=== PATIENT | female | born 1945 | race Caucasian/White ===

== ENCOUNTER 2020-07-07 00:45 | Inpatient (IN) | payer MEDICARE, OTHER ==
[~2020-07-07] VITALS: Ht 165.1 cm; Wt 70.1 kg
--- NOTE | 2020-07-07 00:47 | NUR ---
Patient arrived via on er[facility]
--- NOTE | 2020-07-07 01:00 | NUR ---
Patient on 4.5 liters nasal cannula saturating 99%, SOB noted
[2020-07-07] MEDS ORDERED: ATOR10TA PO (01:07)
[2020-07-07] MEDS ORDERED: METF-440 PO (01:07)
[2020-07-07] MEDS ORDERED: BENZ-38 PO (01:07)
[2020-07-07] MEDS ORDERED: DIGO125T PO (01:07)
[2020-07-07] MEDS ORDERED: METO-356 PO (01:07)
[2020-07-07] MEDS ORDERED: WARF2TAB57 PO (01:07)
[2020-07-07] MEDS ORDERED: FURO-152 PO (01:07)
[2020-07-07] MEDS ORDERED: GLIP5TAB13 PO (01:07)
[2020-07-07 01:33] LABS: ABG BASE EXCESS -2.1 mmol/L; ABG HCO3 23.7 mmol/L; ABG PCO2 44.5 mmHg (35.0-45.0); ABG PH 7.345 (7.350-7.450); ABG PO2 95.9 mmHg (75.0-100.0); ABG SITE RIGHT RADIAL; ABG TOTAL HEMOGLOBIN 13.5 G/dL (12.0-16.0); MetHb 0.3 % (0.0-1.5); O2Hb 95.9 % (94.0-97.0); VENT MODE Nasal Cannula
[2020-07-07] MEDS ORDERED: AZITHROMYCIN IV 500 MG in IV DEXTROSE 5% 250 ML IV ONE (01:45)
[2020-07-07] MEDS ORDERED: CEFTRIAXONE 1 G in IV DEXTROSE 5% 50 ML IV ONE (01:45)
[2020-07-07] MEDS ORDERED: CEFTRIAXONE /D5W 50ML IVPB **ER PYXIS IV ONE (02:23)
[2020-07-07] MEDS ORDERED: AZITHROMYCIN 500MG/ D5W 250ML IVPB **ER PYXIS ONLY IV ONE (02:23)
[2020-07-07 02:30] LABS: BASOPHILS % (AUTO) 0.2 % (0.0-2.0); EOSINOPHILS # (AUTO) 0.2 K/uL (0.0-0.7); EOSINOPHILS % (AUTO) 1.1 % (0.0-7.0); HEMATOCRIT 41.1 % (31.2-41.9); HEMOGLOBIN 13.1 g/dL (10.9-14.3); LYMPHOCYTES # (AUTO) 8.2 K/uL (20.0-40.0); LYMPHOCYTES % (AUTO) 47.6 % (20.5-51.5); MEAN CORPUSCULAR HEMOGLOBIN 28.5 uug (24.7-32.8); MEAN CORPUSCULAR HGB CONC 32 g/dL (32.3-35.6); MONOCYTES # (AUTO) 0.7 K/uL (2.0-10.0); MONOCYTES % (AUTO) 4.3 % (0.0-11.0); NEUTROPHILS # (AUTO) 8.1 K/uL (1.8-8.9); NEUTROPHILS % (AUTO) 46.8 % (38.5-71.5); PLATELET COUNT (AUTO) 122 K/uL (179-408); RED BLOOD CELL COUNT(AUTO) 4.62 MIL/uL (3.63-4.92); WHITE BLOOD COUNT (AUTO) 17.3 K/uL (3.8-11.8)
[2020-07-07 02:42] LABS: *BILIRUBIN,URIN NEGATIVE (NEGATIVE); *COLOR,URINE YELLOW (YELLOW); *KETONES,URINE NEGATIVE (NEGATIVE); *UROBILINOGEN,URINE 0.2 E.U./dl (NORMAL); LEUKOCYTE ESTERASE ,URINE TRACE (NEGATIVE); NITRITE, URINE NEGATIVE (NEGATIVE); UGLUCOSE NEGATIVE (NEGATIVE)
[2020-07-07 02:43] LABS: *BLOOD, URINE TRACE INTACT (NEGATIVE)
[2020-07-07 02:44] LABS: CREATININE 0.9 mg/dL (0.6-1.3); POTASSIUM 4.1 mmol/L (3.5-5.1)
[2020-07-07 03:01] LABS: BILIRUBIN,TOTAL 0.5 mg/dL (0.2-1.0); TOTAL PROTEIN, SERUM 6.9 g/dL (6.4-8.2)
[2020-07-07] MEDS ORDERED: FUROSEMIDE 40 MG/4 ML VIAL IV ONE (04:15)
[2020-07-07] MEDS ORDERED: FUROSEMIDE 40 MG/4 ML VIAL ONE (04:20)
[2020-07-07] MEDS ORDERED: ASPIRIN 81 MG TAB.CHEW PO ONE (05:00)
--- NOTE | 2020-07-07 05:00 | NUR ---
Carlo Hong paged at this time for panel call
[2020-07-07] MEDS ORDERED: ASPIRIN 81 MG TAB.CHEW ONE (05:11)
--- NOTE | 2020-07-07 05:32 | NUR ---
Report given to Savanah BACON [facility] Tele unit
[2020-07-07] MEDS ORDERED: TEMAZEPAM 15 MG CAPSULE PO PRN (05:45)
[2020-07-07] MEDS ORDERED: ONDANSETRON 4 MG/2 ML VIAL IV PRN (05:45)
[2020-07-07] MEDS ORDERED: MORPHINE SULFATE 2 MG/1 ML DISP.SYRIN IV PRN (05:45)
[2020-07-07] MEDS ORDERED: HYDROCODONE/APAP 5-325MG TABLET PO PRN (05:45)
[2020-07-07] MEDS ORDERED: ACETAMINOPHEN 325 MG TABLET PO PRN (05:45)
[2020-07-07] MEDS ORDERED: Z GUARD REMEDY PASTE 57 GM TUBE TOP PRN (05:45)
[2020-07-07] MEDS ORDERED: MAGNESIUM HYDROXIDE 30 ML LIQUID UDC PO PRN (05:45)
--- NOTE | 2020-07-07 05:55 | NUR ---
Pt. admitted to Tele/covid unit, under care of FIBERGLASS CONTAINER WINDING OPERATOR Carlo Hong Belongs List completed and all belongings sent with patient, transferred via wheelchair and oxygen therapy
[2020-07-07] MEDS ORDERED: DEXTROSE 50% 50 ML DISP.SYRIN IV PRN (06:15)
[2020-07-07 06:30] VITALS: BP 149/57
--- NOTE | 2020-07-07 06:30 | NUR ---
Received report from ER pt on the floor @0605 via wheelchair. Pt. admitted to Tele/covid unit PUI, under care of TIN ROOFER Carlo Hong. axox3-4, language barrier, speaks Ukrainian.VSS, no acute distress noted. No SOB noted on 4.5L saturating@98%. Pt BRP, voided x1. Skin intact. IV 22G LAC intact and patent. Oriented pt to the room. Tele monitor indicates controlled a-fib. Belongs List completed and placed in chart. Safety measures maintained. Call light and all personal belongings within pt reach. morning medication administered, accucheck 172. Will continue plan of care and endorse oncoming nurse accordingly.
[2020-07-07] MEDS: PANTOPRAZOLE SODIUM 40 MG TABLET.DR PO SCH (06:31)
[2020-07-07] MEDS: BLOOD SUGAR DIAGNOSTIC 1 EACH STRIP VI SCH ×4 (06:40→21:20)
[2020-07-07 07:50] LABS: *CLARITY,URINE HAZY (CLEAR)
[2020-07-07 07:51] LABS: BACTERIA,URINE NONE SEEN /HPF (NONE SEEN); CALCIUM OXALATE CRYSTALS,UR MODERATE /HPF (NONE SEEN); RBC,URINE 0-3 /HPF (0-3); SQUAMOUS EPITHELIAL CELL,UR FEW /HPF (NONE SEEN)
--- NOTE | 2020-07-07 08:00 | NUR ---
Pt non labored breathing. Pt is in no acute distress. Call light is within reach. Skin dry and intact. Pt able to make her needs known. Tele Afib on monitor controlled V pacing. Pacemaker Left CW.
[2020-07-07] MEDS: INSULIN REGULAR, HUMAN 300 UNIT/3 ML VIAL SQ PRN (08:43)
[2020-07-07] MEDS: FUROSEMIDE 40 MG/4 ML VIAL IV SCH (08:44)
[2020-07-07] MEDS: METOPROLOL SUCCINATE XL 25 MG TAB.SR.24H PO SCH (08:49)
[2020-07-07 11:45] VITALS: BP 109/65
[2020-07-07 11:48] LABS: BASOPHILS # (AUTO) 0.1 K/uL (0.0-8.0); BASOPHILS % (AUTO) 0.3 % (0.0-2.0); EOSINOPHILS # (AUTO) 0.1 K/uL (0.0-0.7); EOSINOPHILS % (AUTO) 0.3 % (0.0-7.0); HEMOGLOBIN 13.6 g/dL (10.9-14.3); LYMPHOCYTES # (AUTO) 8.1 K/uL (20.0-40.0); LYMPHOCYTES % (AUTO) 44.8 % (20.5-51.5); MEAN CORPUSCULAR HEMOGLOBIN 28.5 uug (24.7-32.8); MEAN CORPUSCULAR HGB CONC 32 g/dL (32.3-35.6); MEAN CORPUSCULAR VOLUME 90.1 fL (75.5-95.3); MONOCYTES # (AUTO) 0.6 K/uL (2.0-10.0); MONOCYTES % (AUTO) 3.3 % (0.0-11.0); NEUTROPHILS # (AUTO) 9.3 K/uL (1.8-8.9); NEUTROPHILS % (AUTO) 51.3 % (38.5-71.5); PLATELET COUNT (AUTO) 137 K/uL (179-408); RED BLOOD CELL COUNT(AUTO) 4.77 MIL/uL (3.63-4.92); WHITE BLOOD COUNT (AUTO) 18.1 K/uL (3.8-11.8)
[2020-07-07 11:54] LABS: BILIRUBIN,TOTAL 0.5 mg/dL (0.2-1.0); CREATININE 0.9 mg/dL (0.6-1.3); POTASSIUM 4.6 mmol/L (3.5-5.1); TOTAL PROTEIN, SERUM 7.6 g/dL (6.4-8.2)
[2020-07-07] MEDS: DIGOXIN 125 MCG TABLET PO SCH (11:57)
[2020-07-07 16:11] VITALS: BP 123/61
[2020-07-07] MEDS ORDERED: WARFARIN SODIUM 2 MG TABLET PO SCH (17:00)
--- NOTE | 2020-07-07 18:30 | NUR ---
Pt's o2 tapered to 2 liters via n/c with sat of 95%. Pt is in no acute distress. Call light is within reach.
[2020-07-07 20:31] VITALS: BP 120/77
[2020-07-07] MEDS ORDERED: ATORVASTATIN 10 MG TABLET PO SCH (21:00)
[2020-07-08 00:37] VITALS: BP 122/64
[2020-07-08] MEDS ORDERED: CEFTRIAXONE 1 G in IV DEXTROSE 5% 50 ML IV SCH (02:00)
[2020-07-08 04:00] VITALS: BP 125/63
[2020-07-08] MEDS: PANTOPRAZOLE SODIUM 40 MG TABLET.DR PO SCH (05:40)
[2020-07-08 06:11] LABS: BASOPHILS # (AUTO) 0.1 K/uL (0.0-8.0); BASOPHILS % (AUTO) 0.4 % (0.0-2.0); EOSINOPHILS # (AUTO) 0.3 K/uL (0.0-0.7); EOSINOPHILS % (AUTO) 2.2 % (0.0-7.0); HEMATOCRIT 40.3 % (31.2-41.9); HEMOGLOBIN 13.1 g/dL (10.9-14.3); LYMPHOCYTES # (AUTO) 6.5 K/uL (20.0-40.0); LYMPHOCYTES % (AUTO) 52.8 % (20.5-51.5); MEAN CORPUSCULAR HEMOGLOBIN 28.8 uug (24.7-32.8); MEAN CORPUSCULAR HGB CONC 32 g/dL (32.3-35.6); MEAN CORPUSCULAR VOLUME 88.8 fL (75.5-95.3); MONOCYTES # (AUTO) 0.7 K/uL (2.0-10.0); MONOCYTES % (AUTO) 5.8 % (0.0-11.0); NEUTROPHILS # (AUTO) 4.8 K/uL (1.8-8.9); NEUTROPHILS % (AUTO) 38.8 % (38.5-71.5); PLATELET COUNT (AUTO) 116 K/uL (179-408); RED BLOOD CELL COUNT(AUTO) 4.54 MIL/uL (3.63-4.92); WHITE BLOOD COUNT (AUTO) 12.3 K/uL (3.8-11.8)
[2020-07-08 06:39] LABS: CREATININE 0.9 mg/dL (0.6-1.3); MAGNESIUM 2.2 mg/dL (1.8-2.4); PHOSPHOROUS 4.3 mg/dL (2.5-4.9); POTASSIUM 3.7 mmol/L (3.5-5.1)
[2020-07-08 06:51] LABS: THYROID STIMULATING HORMONE 2.109 mIU/mL (0.358-3.740)
[2020-07-08] MEDS: BLOOD SUGAR DIAGNOSTIC 1 EACH STRIP VI SCH ×2 (07:30→12:11)
--- NOTE | 2020-07-08 08:00 | NUR ---
Pt on R/A with saturation of 98%. NO sob noted. Pt states she wants to go home. Explained to patient that PMD and CARDIOLOGY needs to clear her for d/c. PT verbalized understanding.
[2020-07-08] MEDS ORDERED: FUROSEMIDE 40 MG TABLET PO SCH (09:00)
[2020-07-08] MEDS: FUROSEMIDE 40 MG/4 ML VIAL IV SCH (09:37)
[2020-07-08] MEDS: METOPROLOL SUCCINATE XL 25 MG TAB.SR.24H PO SCH (09:40)
[2020-07-08] MEDS: INSULIN REGULAR, HUMAN 300 UNIT/3 ML VIAL SQ PRN ×2 (09:47→12:38)
[2020-07-08 11:17] VITALS: BP 127/65
[2020-07-08] MEDS: DIGOXIN 125 MCG TABLET PO SCH (12:04)
[2020-07-08] MEDS ORDERED: LEVO500T90 PO (12:57)
--- NOTE | 2020-07-08 16:00 | NUR ---
Discharge instructions given to patient and FAMILY members. Educated both proper monitoring for chf IE daily weight of pt and if weight gain of more than 3 lbs to notify PMD due to his CHF. Prescription given to patient for Levaquin to be started in am. (TAO last GIVEN @ 0200 today. Instructed pt to f/u with enrollment management manager and PMD as soon as possible. Instructed to go to ER for any SOB and emergency situations. Pt and family verbalized understanding discharge instructions. IV taken out. o2 sat 98% on r/a. NO sob upon discharge.
[2020-07-08 16:16] VITALS: BP 122/69
[2020-07-08] MEDS ORDERED: BISACODYL 10 MG SUPP.RECT RC PRN (16:45)
== END 2020-07-08 16:00 | disposition home or self-care (01) | DRG 689 ==
LOC: ER 00:45 → TELE3 05:42
PROVIDERS: ADMIT Nurse Practitioner Acute Care; ATTEND Nurse Practitioner Acute Care
DX: N39.0 Urinary tract infection, site not specified (principal); I50.33 Acute on chronic diastolic (congestive) heart failure; I48.20 Chronic atrial fibrillation, unspecified; E87.2 Acidosis; D68.69 Other thrombophilia; I11.0 Hypertensive heart disease with heart failure; E78.5 Hyperlipidemia, unspecified; E11.9 Type 2 diabetes mellitus without complications; Z79.84 Long term (current) use of oral hypoglycemic drugs; D72.829 Elevated white blood cell count, unspecified; Z79.01 Long term (current) use of anticoagulants; Z95.0 Presence of cardiac pacemaker; Z20.822 Contact with and (suspected) exposure to COVID-19; B96.89 Other specified bacterial agents as the cause of diseases classified elsewhere
CPT/HCPCS: 36415; 36600; 70030-TC; 71045; 83605; 83615; 83735; 84100; 84443; 85025; 85610; 85730; 86140; 87040; 87086; 87400; 93005; A4663; G0378; J0456; J0696; J1815; J1940; J7030; J7060; U0003

== ENCOUNTER 2021-04-07 10:02 | Inpatient (IN) | payer OTHER ==
[~2021-04-07] VITALS: Ht 160 cm; Wt 59.0 kg
[2021-04-07] VITALS (12 sets, daily range): BP systolic 116–146; BP diastolic 53–71
[~2021-04-07 10:02] MED LIST: ATOR10TA PO; BENZ-38 PO; DIGO125T PO; FURO-152 PO; GLIP5TAB13 PO; LEVO500T90 PO; METF-440 PO; METO-356 PO; WARF2TAB57 PO
[2021-04-07] MEDS ORDERED: ALBUTEROL SULFATE 2.5 MG/3 ML NEBU NEB ONE (10:15)
[2021-04-07] MEDS ORDERED: methylPREDNISolone SOD SUCC 125 MG/2 ML VIAL IV ONE (10:15)
[2021-04-07] MEDS ORDERED: CEFEPIME HCL 1 G in IV DEXTROSE 5% 50 ML IV ONE (10:15)
[2021-04-07] MEDS ORDERED: IPRATROPIUM BROMIDE 0.5 MG/2.5 ML NEBU NEB ONE (10:15)
[2021-04-07] MEDS ORDERED: VANCOMYCIN IV 1,000 MG in IV DEXTROSE 5% 250 ML IV ONE (10:15)
[2021-04-07] MEDS ORDERED: ALBUTEROL SULFATE 2.5 MG/3 ML NEBU ONE ×2 (10:19→10:40)
[2021-04-07] MEDS ORDERED: IPRATROPIUM BROMIDE 0.5 MG/2.5 ML NEBU ONE (10:19)
[2021-04-07] MEDS ORDERED: methylPREDNISolone SOD SUCC 125 MG/2 ML VIAL ONE (10:22)
[2021-04-07] MEDS ORDERED: VANCOMYCIN IV 200 ML ONE (10:28)
[2021-04-07 10:35] LABS: HEMATOCRIT 42.3 % (31.2-41.9); MEAN CORPUSCULAR HEMOGLOBIN 28.2 uug (24.7-32.8); MEAN CORPUSCULAR VOLUME 87.5 fL (75.5-95.3); PLATELET COUNT (AUTO) 247 K/uL (179-408)
[2021-04-07 10:37] LABS: CREATININE 0.9 mg/dL (0.6-1.3); POTASSIUM 4.4 mmol/L (3.5-5.1)
[2021-04-07] MEDS ORDERED: CHOL200078 PO (10:44)
[2021-04-07] MEDS ORDERED: DILT-3 PO (10:44)
[2021-04-07] MEDS ORDERED: TIOT18CA3 IH (10:44)
[2021-04-07] MEDS ORDERED: CYAN-51 PO (10:44)
[2021-04-07] MEDS ORDERED: FUROSEMIDE 40 MG/4 ML VIAL IV ONE (10:45)
[2021-04-07] MEDS ORDERED: ALBUTEROL SULFATE 2.5 MG/ 0.5 ML NEBU NEB ONE (10:45)
[2021-04-07 10:50] LABS: BILIRUBIN,DIRECT 0.2 mg/dL (0.0-0.2); BILIRUBIN,TOTAL 0.7 mg/dL (0.2-1.0); TOTAL PROTEIN, SERUM 8.2 g/dL (6.4-8.2)
[2021-04-07] MEDS ORDERED: WIXELA IH (10:54)
[2021-04-07] MEDS ORDERED: FLUT1BLS12 IH (10:54)
[2021-04-07] MEDS ORDERED: VIT1CAPS44 PO (10:54)
[2021-04-07] MEDS ORDERED: CEFEPIME HCL 1 G VIAL ONE (11:01)
[2021-04-07] MEDS ORDERED: FUROSEMIDE 40 MG/4 ML VIAL ONE (11:01)
[2021-04-07 14:08] LABS: *BILIRUBIN,URIN NEGATIVE (NEGATIVE); *COLOR,URINE YELLOW (YELLOW); *KETONES,URINE NEGATIVE (NEGATIVE); *UROBILINOGEN,URINE 0.2 E.U./dl (NORMAL); LEUKOCYTE ESTERASE ,URINE NEGATIVE (NEGATIVE); NITRITE, URINE NEGATIVE (NEGATIVE); UGLUCOSE NEGATIVE (NEGATIVE)
[2021-04-07 14:09] LABS: *BLOOD, URINE TRACE (NEGATIVE)
[2021-04-07 14:15] LABS: BAND % (MANUAL) 1 % (0-10); EOSINOPHILS % (MANUAL) 1 % (0-8); LYMPHOCYTES % (MANUAL) 58 % (20-40); MONOCYTES % (MANUAL) 5 % (2-10); NEUTROPHILS % (MANUAL) 35 % (42-75)
[2021-04-07 14:46] LABS: *CLARITY,URINE SLIGHTLY HAZY (CLEAR); RBC,URINE 0-3 /HPF (0-3)
[2021-04-07 14:47] LABS: BACTERIA,URINE FEW /HPF (NONE SEEN); SQUAMOUS EPITHELIAL CELL,UR MODERATE /HPF (NONE SEEN)
[2021-04-07] MEDS ORDERED: ONDANSETRON 4 MG/2 ML VIAL IV PRN (16:00)
[2021-04-07] MEDS ORDERED: ALBUTEROL SULFATE 8 GM HFA.AER.AD IH PRN (16:00)
[2021-04-07] MEDS ORDERED: MAGNESIUM HYDROXIDE 30 ML LIQUID UDC PO PRN (16:00)
[2021-04-07] MEDS ORDERED: ACETAMINOPHEN 325 MG TABLET PO PRN (16:00)
[2021-04-07] MEDS ORDERED: MORPHINE SULFATE 2 MG/1 ML DISP.SYRIN IV PRN (16:00)
[2021-04-07] MEDS ORDERED: WARF4TAB72 PO ×2 (16:33→16:34)
[2021-04-07] MEDS ORDERED: METOPROLOL SUCCINATE XL 25 MG TAB.SR.24H PO SCH (17:00)
[2021-04-07] MEDS ORDERED: AZITHROMYCIN IV 500 MG in IV DEXTROSE 5% 250 ML IV SCH (17:00)
[2021-04-07] MEDS ORDERED: FLUTICASONE/SALMETEROL 250/50 INHALER IH SCH (17:00)
[2021-04-07] MEDS ORDERED: FUROSEMIDE 20 MG TABLET PO SCH (17:00)
[2021-04-07] MEDS ORDERED: METFORMIN HCL 500 MG TABLET PO SCH (18:00)
[2021-04-07] MEDS: CEFTRIAXONE 1 G in IV DEXTROSE 5% 50 ML IV SCH (18:38)
[2021-04-07] MEDS: ATORVASTATIN 10 MG TABLET PO SCH (20:37)
[2021-04-07] MEDS: DOCUSATE SODIUM 100 MG CAPSULE PO SCH (20:37)
[2021-04-07] MEDS ORDERED: DOCUSATE SODIUM 250 MG CAPSULE PO SCH (21:00)
[2021-04-07] MEDS ORDERED: DEXTROSE 50% 50 ML DISP.SYRIN IV PRN (22:15)
[2021-04-07] MEDS: methylPREDNISolone SOD SUCC 40 MG/ML VIAL IV SCH (23:05)
[2021-04-08] VITALS (24 sets, daily range): BP systolic 100–144; BP diastolic 40–80
[2021-04-08 05:20] LABS: HEMATOCRIT 36.4 % (31.2-41.9); MEAN CORPUSCULAR HEMOGLOBIN 28.2 uug (24.7-32.8); MEAN CORPUSCULAR VOLUME 86.7 fL (75.5-95.3); PLATELET COUNT (AUTO) 186 K/uL (179-408)
[2021-04-08 05:35] LABS: BILIRUBIN,TOTAL 0.5 mg/dL (0.2-1.0); CREATININE 0.9 mg/dL (0.6-1.3); MAGNESIUM 2.2 mg/dL (1.8-2.4); PHOSPHOROUS 3.8 mg/dL (2.5-4.9); POTASSIUM 4.8 mmol/L (3.5-5.1); TOTAL PROTEIN, SERUM 6.8 g/dL (6.4-8.2)
[2021-04-08 05:36] LABS: ABG BASE EXCESS 0.3 mmol/L; ABG PCO2 40.8 mmHg (35.0-45.0); ABG PH 7.406 (7.350-7.450); ABG PO2 88.4 mmHg (75.0-100.0); ABG SITE RIGHT RADIAL; ABG TOTAL HEMOGLOBIN 12.8 G/dL (12.0-16.0); COHb 0.8 % (0.5-1.5); MetHb 0.3 % (0.0-1.5)
[2021-04-08 05:44] LABS: THYROID STIMULATING HORMONE 0.929 mIU/mL (0.358-3.740)
[2021-04-08] MEDS ORDERED: SWABABLE VALVE TRANSFER SET EA MC ONE (05:57)
[2021-04-08] MEDS ORDERED: IV NORMAL SALINE 250 ML IV ONE (05:57)
[2021-04-08] MEDS ORDERED: IOHEXOL 300MG/ML 100 ML INFUS..BTL ONE (05:57)
[2021-04-08] MEDS: methylPREDNISolone SOD SUCC 40 MG/ML VIAL IV SCH ×3 (06:46→22:08)
[2021-04-08] MEDS: PANTOPRAZOLE SODIUM 40 MG TABLET.DR PO SCH (06:46)
[2021-04-08] MEDS: BLOOD SUGAR DIAGNOSTIC 1 EACH STRIP VI SCH ×4 (07:05→20:56)
[2021-04-08] MEDS: glipiZIDE 5 MG TABLET PO SCH ×2 (07:54→17:05)
[2021-04-08] MEDS: FLUTICASONE/VILANTEROL 1 EACH BLST.W.DEV INH SCH (08:06)
[2021-04-08] MEDS: CHOLECALCIFEROL 1,000 UNIT TABLET PO SCH (08:06)
[2021-04-08] MEDS: DIGOXIN 125 MCG TABLET PO SCH (08:07)
[2021-04-08] MEDS: DILTIAZEM HCL CD 240 MG CAP.SR.24H PO SCH (08:09)
[2021-04-08] MEDS: BETA CAROTENE/VIT C & E/MIN TABLET PO SCH (08:09)
[2021-04-08] MEDS: FUROSEMIDE 40 MG/4 ML VIAL IVP SCH ×2 (08:19→17:06)
[2021-04-08] MEDS ORDERED: Medication Not On Formulary EA (Vit C/E/Zn/Coppr/Lutein/Zeaxan (Preservision Areds 2 Sof PO SCH (09:00)
[2021-04-08] MEDS ORDERED: FUROSEMIDE 20 MG/2 ML VIAL IV SCH ×2 (09:00)
[2021-04-08] MEDS ORDERED: glipiZIDE 5 MG TABLET PO SCH (09:00)
[2021-04-08] MEDS: INSULIN REGULAR, HUMAN 300 UNIT/3 ML VIAL SQ PRN ×3 (12:01→20:59)
[2021-04-08] MEDS: CEFTRIAXONE 1 G in IV DEXTROSE 5% 50 ML IV SCH (18:57)
[2021-04-08] MEDS: DOCUSATE SODIUM 100 MG CAPSULE PO SCH (20:43)
[2021-04-08] MEDS: ATORVASTATIN 10 MG TABLET PO SCH (20:44)
[2021-04-09] VITALS (17 sets, daily range): BP systolic 95–130; BP diastolic 45–77
[2021-04-09] MEDS: methylPREDNISolone SOD SUCC 40 MG/ML VIAL IV SCH ×3 (05:26→22:05)
[2021-04-09 05:35] LABS: HEMATOCRIT 36.7 % (31.2-41.9); MEAN CORPUSCULAR HEMOGLOBIN 27.9 uug (24.7-32.8); MEAN CORPUSCULAR VOLUME 85.4 fL (75.5-95.3); PLATELET COUNT (AUTO) 205 K/uL (179-408)
[2021-04-09 05:39] LABS: CARBON DIOXIDE 32 mmol/L (21-32); CHLORIDE 106 mmol/L (98-107); GLUCOSE 185 mg/dL (74-106); MAGNESIUM 2.5 mg/dL (1.8-2.4); PHOSPHOROUS 4.4 mg/dL (2.5-4.9); POTASSIUM 4.4 mmol/L (3.5-5.1); UREA NITROGEN, BLOOD 32 mg/dL (7-18)
[2021-04-09] MEDS: PANTOPRAZOLE SODIUM 40 MG TABLET.DR PO SCH (06:26)
[2021-04-09] MEDS: glipiZIDE 5 MG TABLET PO SCH ×2 (06:39→17:08)
[2021-04-09] MEDS: BLOOD SUGAR DIAGNOSTIC 1 EACH STRIP VI SCH ×4 (08:14→20:17)
[2021-04-09] MEDS: INSULIN REGULAR, HUMAN 300 UNIT/3 ML VIAL SQ PRN ×4 (08:16→20:26)
[2021-04-09] MEDS: DIGOXIN 125 MCG TABLET PO SCH (08:22)
[2021-04-09] MEDS: CHOLECALCIFEROL 1,000 UNIT TABLET PO SCH (08:22)
[2021-04-09] MEDS: FLUTICASONE/VILANTEROL 1 EACH BLST.W.DEV INH SCH (08:22)
[2021-04-09] MEDS: BETA CAROTENE/VIT C & E/MIN TABLET PO SCH (08:23)
[2021-04-09] MEDS: DILTIAZEM HCL CD 240 MG CAP.SR.24H PO SCH (08:23)
[2021-04-09] MEDS ORDERED: FUROSEMIDE 40 MG/4 ML VIAL IV ONE (09:45)
[2021-04-09] MEDS ORDERED: ALBUTEROL SULFATE 2.5 MG/3 ML NEBU NEB PRN (10:15)
[2021-04-09] MEDS: WARFARIN SODIUM 2 MG TABLET PO SCH (17:09)
[2021-04-09] MEDS: ATORVASTATIN 10 MG TABLET PO SCH (20:13)
[2021-04-09] MEDS: DOCUSATE SODIUM 100 MG CAPSULE PO SCH (20:17)
[2021-04-10] VITALS (7 sets, daily range): BP systolic 100–131; BP diastolic 48–68
[2021-04-10] MEDS: methylPREDNISolone SOD SUCC 40 MG/ML VIAL IV SCH (06:11)
[2021-04-10] MEDS: PANTOPRAZOLE SODIUM 40 MG TABLET.DR PO SCH (06:11)
[2021-04-10] MEDS: BLOOD SUGAR DIAGNOSTIC 1 EACH STRIP VI SCH ×4 (06:20→20:03)
[2021-04-10 06:52] LABS: HEMATOCRIT 37.9 % (31.2-41.9); MEAN CORPUSCULAR HEMOGLOBIN 27.5 uug (24.7-32.8); MEAN CORPUSCULAR VOLUME 86.1 fL (75.5-95.3); PLATELET COUNT (AUTO) 178 K/uL (179-408)
[2021-04-10 07:27] LABS: CREATININE 0.9 mg/dL (0.6-1.3); MAGNESIUM 2.7 mg/dL (1.8-2.4); PHOSPHOROUS 4.1 mg/dL (2.5-4.9); POTASSIUM 4.5 mmol/L (3.5-5.1)
[2021-04-10] MEDS: glipiZIDE 5 MG TABLET PO SCH ×2 (07:48→16:28)
[2021-04-10] MEDS: DIGOXIN 125 MCG TABLET PO SCH (08:06)
[2021-04-10] MEDS: CHOLECALCIFEROL 1,000 UNIT TABLET PO SCH (08:06)
[2021-04-10] MEDS: DILTIAZEM HCL CD 240 MG CAP.SR.24H PO SCH (08:06)
[2021-04-10] MEDS: BETA CAROTENE/VIT C & E/MIN TABLET PO SCH (08:07)
[2021-04-10] MEDS: FLUTICASONE/VILANTEROL 1 EACH BLST.W.DEV INH SCH (08:07)
[2021-04-10] MEDS: FUROSEMIDE 40 MG TABLET PO SCH (09:37)
[2021-04-10] MEDS: INSULIN REGULAR, HUMAN 300 UNIT/3 ML VIAL SQ PRN ×3 (11:49→20:06)
[2021-04-10] MEDS: WARFARIN SODIUM 2 MG TABLET PO SCH (16:27)
[2021-04-10] MEDS ORDERED: WARFARIN SODIUM 1 MG TABLET PO ONE (17:00)
[2021-04-10] MEDS: ATORVASTATIN 10 MG TABLET PO SCH (20:01)
[2021-04-10] MEDS: DOCUSATE SODIUM 100 MG CAPSULE PO SCH (20:01)
[2021-04-11] VITALS: BP 127/61
[2021-04-11 04:00] VITALS: BP 130/64
[2021-04-11] MEDS: PANTOPRAZOLE SODIUM 40 MG TABLET.DR PO SCH (06:11)
[2021-04-11] MEDS: BLOOD SUGAR DIAGNOSTIC 1 EACH STRIP VI SCH (06:39)
[2021-04-11] MEDS: glipiZIDE 5 MG TABLET PO SCH (06:39)
[2021-04-11 07:07] LABS: HEMATOCRIT 39.7 % (31.2-41.9); MEAN CORPUSCULAR HEMOGLOBIN 27.6 uug (24.7-32.8); MEAN CORPUSCULAR VOLUME 86.9 fL (75.5-95.3); PLATELET COUNT (AUTO) 162 K/uL (179-408)
[2021-04-11 07:40] LABS: CREATININE 0.9 mg/dL (0.6-1.3); MAGNESIUM 2.7 mg/dL (1.8-2.4); POTASSIUM 4.2 mmol/L (3.5-5.1)
[2021-04-11] MEDS: INSULIN REGULAR, HUMAN 300 UNIT/3 ML VIAL SQ PRN (08:19)
[2021-04-11 08:21] VITALS: BP 128/62
[2021-04-11] MEDS: FUROSEMIDE 40 MG TABLET PO SCH (08:21)
[2021-04-11] MEDS: CHOLECALCIFEROL 1,000 UNIT TABLET PO SCH (08:21)
[2021-04-11] MEDS: BETA CAROTENE/VIT C & E/MIN TABLET PO SCH (08:21)
[2021-04-11] MEDS: DIGOXIN 125 MCG TABLET PO SCH (08:21)
[2021-04-11] MEDS: DILTIAZEM HCL CD 240 MG CAP.SR.24H PO SCH (08:21)
[2021-04-11] MEDS: FLUTICASONE/VILANTEROL 1 EACH BLST.W.DEV INH SCH (08:24)
[2021-04-11] MEDS ORDERED: WARF-68 PO (09:51)
[2021-04-11] MEDS ORDERED: FURO40TA5 PO (09:51)
[2021-04-11] MEDS ORDERED: WARFARIN SODIUM 2 MG TABLET PO ONE (10:15)
[2021-04-12] MEDS ORDERED: WARFARIN SODIUM 2 MG TABLET PO SCH (17:00)
== END 2021-04-11 10:45 | disposition home or self-care (01) | DRG 871 ==
LOC: ER 10:02 → CCU 13:30 → TELE3 04-09 20:42
PROVIDERS: ADMIT Internal Medicine; ATTEND Student in an Organized Health Care Education/Training Program
PROC: 5A09357 Assistance with Respiratory Ventilation, Less than 24 Consecutive Hours, Continuous Positive Airway Pressure (ICD-10-PCS; principal; 2021-04-07)
DX: A41.9 Sepsis, unspecified organism (principal); J18.9 Pneumonia, unspecified organism; J96.21 Acute and chronic respiratory failure with hypoxia; I50.33 Acute on chronic diastolic (congestive) heart failure; I48.20 Chronic atrial fibrillation, unspecified; J44.0 Chronic obstructive pulmonary disease with (acute) lower respiratory infection; J44.1 Chronic obstructive pulmonary disease with (acute) exacerbation; E11.9 Type 2 diabetes mellitus without complications; E78.5 Hyperlipidemia, unspecified; I27.20 Pulmonary hypertension, unspecified; I25.10 Atherosclerotic heart disease of native coronary artery without angina pectoris; Z20.822 Contact with and (suspected) exposure to COVID-19; Z79.01 Long term (current) use of anticoagulants; Z79.84 Long term (current) use of oral hypoglycemic drugs; Z87.891 Personal history of nicotine dependence; Z95.0 Presence of cardiac pacemaker; I11.0 Hypertensive heart disease with heart failure; I05.0 Rheumatic mitral stenosis; R59.1 Generalized enlarged lymph nodes; D72.820 Lymphocytosis (symptomatic)
CPT/HCPCS: 36415; 36600; 70030-TC; 71045; 71260; 83605; 83735; 84100; 84443; 85025; 85610; 85730; 86140; 87040; 87086; 93005; 93307; 97161; A4663; G0378; J0456; J0692; J0696; J1815; J1940; J2920; J2930; J3370; J3490; J3535; J3590; J7050; J7060; Q9967; U0003